=== PATIENT | female | born 1990 | race Asian ===

== ENCOUNTER 2016-12-06 08:30 | Emergency (ER) | payer OTHER ==
[2016-12-06 09:03] LABS: BASO % 0.5 % (0.2-1.0); EOS # 0.2 (0.0-0.5); EOS % 2.8 % (0.9-2.9); HEMATOCRIT 43.3 % (37.0-47.0); HEMOGLOBIN 13.5 gm/l (12.0-16.0); IMM NEUT% 0.4 % (0-1); LYMPH # 2.1 (1.0-4.8); LYMPH % 37.4 % (15-45); MEAN CELL VOLUME 91.2 fl (81.0-99.0); MEAN CORPUSCULAR HEMOGLOBIN 28.4 pg (27.0-31.0); MEAN CORPUSCULAR HGB CONC 31.2 g/dl (33.0-37.0); MEAN PLATELET VOLUME 10.4 fl (7.4-10.4); MONO # 0.4 (0.0-0.8); MONO % 6.7 % (4-12); NEUT % 52.2 % (43-75); PLATELET COUNT 193 K/mm3 (130-400); RED CELL DISTRIBUTION WIDTH 12.4 % (11.5-14.5)
[2016-12-06 09:20] LABS: ALB/GLOB RATIO 1.6 (>1.0); ALBUMIN 4.5 gm/dL (3.5-5.7); CALCIUM 9.8 mg/dL (8.6-10.3)
[2016-12-06] MEDS ORDERED: METHOTREXATE SODIUM 25 MG/ML IM ONE (11:45)
--- NOTE | 2016-12-07 13:04 | CONS ---
NIRALI ARTIS [id number] : 1990 DATE OF CONSULTATION: December 06, 2016 PHYSICIAN REQUESTING CONSULTATION: Sophie Avery M.D. REASON FOR CONSULTATION: Possible ectopic . HISTORY OF PRESENT ILLNESS: Nirali Spears is a 26-year-old 2, para 1, 0/0/1 whose last menstrual period was September 22, 2016. She was followed by Dr. Montilla during the beginning of this but unfortunately her first ultrasound showed no intrauterine . The patient has a history of a prior section with her first . Her beta HCG on November 30, 2016 was 2759. Two days later on Monday, December 02, 2016, it had gone down to 2143. Dr. Montilla had the patient come in to the emergency room today for reevaluation because of a concern about a possible ectopic . Her ultrasound through the radiology department also showed no intrauterine . There was no definite adnexal mass though Dr. Montilla had a concern about some possible tubal finding on the right side. There also was some free fluid in the pelvis. The patient was not having any pain. She came in to the emergency room so that we could review her findings. Her HCG today was down to 1002. The patient's blood type is A positive. Even today she was not feeling any pain. I did interview the patient in the emergency room today to review the details of her history. She had a section for delivery of her daughter two years ago in November of 2014. This was done because the baby was breech. It is also interesting to note that that baby had cleft lip. The patient had a Mirena IUD inserted after her daughter, and this was removed in August of 2016 because they were hoping to conceive again. The patient says that she had a fairly normal period that started September 22, 2016. It was a month later on October 31, 2016, that she did a home test and this was positive. The patient was doing okay until November 13, 2016. It seems that she took a trip to [place] and on November 13, 2016, she unfortunately began bleeding. She says that she did have some significant bleeding and passed some fairly large clots. She does not remember seeing any type of sac but she does remember seeing some stringiness within the clot. She then had spotting for about two weeks. This stopped on November 27, 2016 before she actually saw Dr. Montilla for the first time. She never had significant abdominal pain. She did have some cramping and lower abdominal pressure. This patient's other history was reviewed. She denies any major medical problems, though she has had psoriasis for many years. She thinks it was about six years ago she was treated with methotrexate. She then did take folic acid after that. The methotrexate helped her psoriasis a little bit but really not that much and eventually she decided to quit taking that. She denies any history of hypertension or diabetes. She does have a history of the section but there is no other surgical history. The patient did have induced hypertension with her last . It is interesting that both the patient's daughter and her sister had cleft lip, but otherwise there is no family history of genetic problems or abnormalities. The patient does not drink or smoke or use any recreational drugs, and generally she is very healthy. REVIEW OF SYSTEMS: Otherwise normal. CURRENT MEDICATIONS: Patient is not currently on any medications other than vitamins. PHYSICAL EXAM: GENERAL: Patient appears comfortable and stable. Patient has good color in her face. She was a little bit emotional and tearful as we talked about this loss. VITAL SIGNS: Blood pressure 125/88, pulse is in the 80s, respirations are normal. LUNGS: Clear to auscultation. No costovertebral angle tenderness. HEART: Regular rate and rhythm. ABDOMEN: Soft, normal bowel sounds, nontender. No abdominal distention. PELVIC: No pelvic exam was done today. ASSESSMENT: I explained to the patient that these series of HCG pretty well confirm that this is a nonviable . My initial working diagnosis was that this could be a tubal because of the free fluid in her pelvis and also because the HCG is not going down as rapidly as I would expect if she had miscarried. On the other hand, as I obtained the history of her very recent bleeding, it is possible that she miscarried with a fairly high HCG and now we are seeing the tail end of the exponential decay curve for this HCG. We talked about risks and possible complications of methotrexate as well as benefits. In the end, it was decided that the patient would get a dose of methotrexate 75 mg intramuscularly. She will expect some possible side effects from this but I am not expecting that she will have any major concerns. We also talked about the possibility that she could still rupture an ectopic . The patient knows that if she should have any symptoms of any acute abdominal pain or feeling faint or abdominal distention, she is to come back to the emergency room. If the patient is doing well, we will try to see her back in three to four days for followup blood work, and then we will be following her beta HCG until it comes down to negative. We also talked about waiting several months before trying to conceive again. I also think it will be very important for this patient to be on both a vitamin and folic acid before trying to conceive. Patient understands and agrees with this plan. We did talk briefly about contraception. Patient was not interested in getting on anything right now, but we will discuss this again on her next office visit.
== END 2016-12-06 12:52 | disposition home or self-care (01) ==
LOC: ED 08:30
DX: O26.899 Other specified pregnancy related conditions, unspecified trimester (principal); Z3A.00 Weeks of gestation of pregnancy not specified
CPT/HCPCS: 84702; 85025; 80053; 99283 ×2; 96372 ×2; J9250